=== PATIENT | male | born 2000 | race Asian ===

== ENCOUNTER 2018-11-08 15:10 | Outpatient (CLI) | payer OTHER ==
[2018-11-08 16:13] LABS: HEMATOCRIT 43.2 % (36-54); HEMOGLOBIN 14.5 g/dL (14.0-18.0); MEAN CORPUSCULAR VOLUME 90 fL (79.0-98.0); RED BLOOD CELL COUNT(AUTO) 4.79 MIL/uL (4.2-6.2); WHITE BLOOD COUNT (AUTO) 12.4 K/uL (4.5-11.0)
[2018-11-08 16:14] LABS: MEAN CORPUSCULAR HEMOGLOBIN 30 pg (27-31); MEAN CORPUSCULAR HGB CONC 34 % (32-36); MONOCYTES % (AUTO) 5.3 % (1.7-9.3); NEUTROPHILS % (AUTO) 70.2 % (40.0-70.0); PLATELET COUNT (AUTO) 393 K/uL (130-430); RED CELL DISTRIBUTION WIDTH 11.9 % (9.0-15.0)
[2018-11-08 16:15] LABS: BASOPHILS # (AUTO) 0.1 K/uL (0.0-0.2); BASOPHILS % (AUTO) 0.5 % (0.0-2.0); EOSINOPHILS # (AUTO) 0.1 K/uL (0.0-0.4); LYMPHOCYTES # (AUTO) 2.8 K/uL (1.0-5.5); MONOCYTES # (AUTO) 0.7 K/uL (0.0-1.0); NEUTROPHILS # (AUTO) 8.7 K/uL (1.8-7.7)
[2018-11-08 17:11] LABS: CALCIUM 9.5 mg/dL (8.4-11.0); CREATININE 0.95 mg/dL (0.55-1.30); POTASSIUM 3.9 mmol/L (3.5-5.1); TOTAL BILIRUBIN 0.5 mg/dL (0.0-1.0)
[2018-11-08 17:12] LABS: ALBUMIN 4.6 g/dL (3.4-4.8); THYROID STIMULATING HORMONE 0.89 uIu/mL (0.34-4.82); URIC ACID 6.1 mg/dL (2.4-7.0)
[2018-11-09 04:06] LABS: HEMOGLOBIN A1C 5.5 % (4.8-5.6)
[2018-11-09 08:06] LABS: CORTISOL (SERUM) 1.2 ug/dL (.)
== END 2018-11-08 18:26 | disposition home or self-care (01) ==
LOC: SLB 15:10 → EDSEX 15:10 → SLB 18:26
PROVIDERS: ATTEND Internal Medicine
DX: Z00.00 Encounter for general adult medical examination without abnormal findings (principal)
CPT/HCPCS: 36415; 80053; 80061; 82306; 82533; 82607; 83036; 84443-TC; 84550-TC; 85025

== ENCOUNTER 2018-11-12 17:24 | Outpatient (CLI) | payer OTHER | END 2018-11-12 19:36 | disposition home or self-care (01) | LOC: SLB 17:24 | PROVIDERS: ATTEND Internal Medicine | DX: E27.49 Other adrenocortical insufficiency (principal) | CPT/HCPCS: 36415; 82533 ==

== ENCOUNTER 2018-11-15 08:35 | Outpatient (CLI) | payer OTHER | END 2018-11-15 18:58 | disposition home or self-care (01) | LOC: SUS 08:35 | PROVIDERS: ATTEND Internal Medicine | DX: E27.40 Unspecified adrenocortical insufficiency (principal) | CPT/HCPCS: 76700-TC ==